=== PATIENT | male | born 1980 | race African-American/Black ===

== ENCOUNTER 2016-08-16 20:37 | Emergency (ER) | payer BC ==
--- NOTE | ~2016-08-16 | EKG ---
PATIENT: SOLANGE HUGHES UNIT #: [id number] Ventricular Rate: 75 BPM Atrial Rate: 75 BPM P-R Interval: 158 ms QRS Duration: 92 ms Q-T Interval: 372 ms QTC Calculation(Bezet): 415 ms P [place]: 39 degrees Calculated R [place]: 21 degrees Calculated T [place]: -36 degrees Diagnosis Line: Normal sinus rhythm with sinus arrhythmia Diagnosis Line: T wave abnormality, consider inferior ischemia Diagnosis Line: Abnormal ECG Diagnosis Line: No previous ECGs available Diagnosis Line: Confirmed by JOSE LUIS ADDISON MD ([id number]) on Diagnosis Line: 08/25/2016 8:27:59 AM INTERPRETING MD: AZAEL LANDRY
--- NOTE | ~2016-08-16 | CR63 ---
[facility]. [facility] A Service of [facility] & [facility] / [facility] RADIOLOGY TEXT RESULTS PATIENT: SOLANGE HUGHES LOCATION: SED : 84 UNIT #: [id number] AGE: [address]: León Becerril MD SEX: M ORDER DR: [id number] [place] [address] [id number] E MR#: [id number] Acc #: [id number] NAME: SOLANGE HUGHES : 1980 SEX: M STUDY DATE/TIME: 08/16/2016 22:48 UNIT: SED ROOM: STUDY DESCRIPTION: CR Chest 2 View Attending Physician: León Becerril M.D. Ordering Physician: León Becerril M.D. Primary Care Physician: Allyson Mulligan M.D. MEDICAL IMAGING REPORT This report is preliminary unless electronic signature is present. EXAM PA and lateral chest INDICATION Bilateral arm numbness and tingling and dizziness today. FINDINGS PA and lateral examination of the chest upright shows a good expansion of the parenchyma with a normal distribution of the pulmonary vascularity. There is no indication of congestion, effusion, infiltrate, tumor, or nodular density. The pleural reflections and diaphragmatic contours are normal. The cardiac silhouette and mediastinal anatomy is within normal limits. IMPRESSION Normal chest. Dictated by... Edwardo Ordaz M.D. THIS IS AN ELECTRONICALLY VERIFIED REPORT Edwardo Ordaz M.D. at 08/17/2016 1:22 PM YURIDIA/leobardo TD: 08/17/2016 09:39 JOB #: [id number] MEDICAL IMAGING REPORT Page 1 of 1
--- NOTE | ~2016-08-16 | CT71 ---
[facility] A Service [facility] RADIOLOGY TEXT RESULTS PATIENT: SOLANGE HUGHES LOCATION: SED : 84 UNIT #: [id number] AGE: [address]: León Becerril MD SEX: M ORDER DR: [id number] [place] [id number] E MR#: [id number] Acc #: [id number] NAME: SOLANGE HUGHES : 1980 SEX: M STUDY DATE/TIME: 08/16/2016 22:56 UNIT: SED ROOM: STUDY DESCRIPTION: CT Head Wo Contrast Attending Physician: León Becerril M.D. Ordering Physician: León Becerril M.D. Primary Care Physician: Allyson Mulligan M.D. MEDICAL IMAGING REPORT This report is preliminary unless electronic signature is present. EXAM CT scan of the head without contrast HISTORY Dizziness and bilateral arm numbness and tingling today. TECHNIQUE This CT exam was performed with one or more of the following radiation dose reduction techniques: automatic exposure control, adjustment of mA and/or kV according to patient size, and iterative reconstruction. FINDINGS Axial noncontrast images were obtained from the skull base to the vertex. Ventricular size and configuration are normal. There is no evidence of acute infarct or hemorrhage. There are no extraaxial fluid collections. No mass lesion or mass effect is seen. There are no skull fractures. IMPRESSION Normal noncontrast head CT. Dictated by... Edwardo Ordaz M.D. THIS IS AN ELECTRONICALLY VERIFIED REPORT Edwardo Ordaz M.D. at 08/17/2016 1:22 PM YURIDIA/garrison TD: 08/17/2016 09:31 JOB #: [id number] MEDICAL IMAGING REPORT [facility] A Service [facility] RADIOLOGY TEXT RESULTS PATIENT: SOLANGE HUGHES LOCATION: SED : 84 UNIT #: [id number] AGE: [address]: León Becerril MD SEX: M ORDER DR: Page 1 of 1
[2016-08-16] MEDS ORDERED: AMLODIPINE BESY10 MG PO (21:21)
[2016-08-16] MEDS ORDERED: IRBESARTAN-HCT1 EACH (21:21)
[2016-08-16 22:49] LABS: BASOPHIL# 0.1 X10e3 (0-0.3); BASOPHIL% 1.1 % (0-2.5); EOSINOPHIL# 0.1 X10e3 (0-0.7); EOSINOPHIL% 2.2 % (0.0-7.0); HEMATOCRIT 44.1 % (38.0-50.0); HEMOGLOBIN 15.4 gm/dL (13.0-16.0); LYMPHOCYTE# 2.6 X10e3 (1.0-3.5); LYMPHOCYTE% 39.7 % (17.0-45.0); MEAN CELL VOLUME 80.9 FL (83-96); MEAN CORPUSCULAR HEMOGLOBIN 28.2 PG (28-34); MEAN CORPUSCULAR HGB CONC 34.9 g/dL (30-36); MEAN PLATELET VOLUME 8.9 FL (6.5-11.5); MONOCYTE# 0.6 X10e3 (0-1.0); MONOCYTE% 9.7 % (3.0-12.0); NEUTROPHIL# 3.1 X10e3 (1.5-7.1); NEUTROPHIL% 47.3 % (40-75); PLATELET COUNT 211 X10e3 (140-420); RED BLOOD COUNT 5.45 X10e (3.90-5.60); RED CELL DISTRIBUTION WIDTH 13.6 % (11.0-15.5); WHITE BLOOD COUNT 6.6 X10e3 (4.0-10.5)
[2016-08-16 22:52] LABS: DIFF IND NO
[2016-08-16 23:03] LABS: POC - CKMB 1.5 ng/mL (0.0-7.9); POC - TROPONIN <0.05 ng/mL (<=0.05)
[2016-08-16 23:07] LABS: ALBUMIN SERUM 5.1 g/dL (3.5-5.0); ALKALINE PHOSPHATASE 73 U/L (32-92); ALT (SGPT) 60 U/L (10-40); AST (SGOT) 31 U/L (10-42); BILIRUBIN,TOTAL 0.3 mg/dL (0.2-2.0); BLOOD UREA NITROGEN 17 mg/dL (9-23); BUN/CREATININE RATIO 14.16; CALCIUM SERUM 9.6 mg/dL (8.4-10.2); CARBON DIOXIDE 27 mmol/L (22-31); CHLORIDE 104 mmol/L (100-111); CREATININE SERUM 1.2 mg/dL (0.6-1.4); GLOM FILT RATE Estimated 91.6 mL/min (>60); GLUCOSE FASTING 99 mg/dL (70-110); POTASSIUM 3.1 mmol/L (3.5-5.1); PROTEIN TOTAL SERUM 8.5 g/dL (6.0-8.3); SODIUM 141 mmol/L (135-145)
[2016-08-16 23:14] LABS: BILIRUBIN, DIRECT <0.1 mg/dL (0.0-0.2); BILIRUBIN,INDIRECT 0.2 mg/dL (0.0-0.9)
[2016-08-17] MEDS ORDERED: POTASSIUM99 M1 PO (01:33)
[2016-08-17] MEDS ORDERED: TOPROL XL50 MG PO (01:34)
== END 2016-08-17 01:34 | disposition home or self-care (01) ==
LOC: SED 20:37
PROVIDERS: Emergency Medicine
DX: E87.6 Hypokalemia (principal); I10 Essential (primary) hypertension; Z79.899 Other long term (current) drug therapy
CPT/HCPCS: 36415; 70450; 71020; 80048; 80076; 82553; 84484; 85025; 93005; 99284